=== PATIENT | female | born 1940 | race Caucasian/White ===

== ENCOUNTER 2016-11-19 16:52 | Inpatient (IN) | payer MEDICARE, OTHER ==
[~2016-11-19] VITALS: Ht 162.6 cm; Wt 58.6 kg
[2016-11-19] MEDS ORDERED: ASPIRIN 81 MG TABLET CHEW ONE (17:24)
[2016-11-19] MEDS ORDERED: ASPIRIN 81 MG TABLET CHEW PO ONE (17:30)
[2016-11-19 17:55] LABS: IS PT STATUS REG ER OR PRE ER? YES
[2016-11-19 17:58] LABS: BLOOD UREA NITROGEN 14 mg/dL (7-18)
[2016-11-19] MEDS ORDERED: ALPR0.254 PO (20:09)
[2016-11-19] MEDS ORDERED: CLOP75TA22 PO (20:09)
[2016-11-19] MEDS ORDERED: ROSU20TA PO (20:09)
[2016-11-19] MEDS ORDERED: ASPI-496 PO (20:09)
[2016-11-19] MEDS ORDERED: FURO20TA3 PO (20:09)
[2016-11-19] MEDS ORDERED: CARV-39 PO (20:09)
[2016-11-19] MEDS ORDERED: CEPH-375 PO (20:09)
[2016-11-19] MEDS ORDERED: ROPI0.5T2 PO (20:09)
[2016-11-19] MEDS ORDERED: LOSA100T6 PO (20:09)
[2016-11-19] MEDS ORDERED: LEVO75TA5 PO (20:09)
[2016-11-19] MEDS ORDERED: CARVEDILOL 25 MG TABLET PO ONE (21:30)
[2016-11-19 22:21] VITALS: BP 192/100
[2016-11-19 23:15] VITALS: BP 181/77
[2016-11-19] MEDS ORDERED: hydrALAzine 20 MG/ML, 1ML IV PRN (23:30)
[2016-11-20] MEDS ORDERED: POLYETHYLENE GLYCOL 17 GM PACKET PO PRN
[2016-11-20] MEDS ORDERED: morphine SULFATE 10 MG/ML, 1ML IVPush PRN
[2016-11-20] MEDS ORDERED: BISACODYL 10 MG SUPP PR PRN
[2016-11-20] MEDS ORDERED: ONDANSETRON 2MG/ML, 2ML IVPush PRN
[2016-11-20] MEDS ORDERED: ACETAMINOPHEN 325 MG TABLET PO PRN
[2016-11-20] MEDS ORDERED: NITROGLYCERIN 0.4 MG BOTTLE (25 TABS) SL PRN
[2016-11-20] MEDS: ATORVASTATIN 40 MG TABLET PO SCH ×2 (00:35→20:29)
[2016-11-20] MEDS: ROPINIROLE 0.5MG TABLET PO SCH ×2 (00:35→20:30)
[2016-11-20] MEDS: HEPARIN 5,000 UNITS/ML, 1ML SQ SCH ×3 (00:36→16:54)
[2016-11-20] MEDS: CARVEDILOL 25 MG TABLET PO SCH ×3 (00:38→20:30)
[2016-11-20 00:57] LABS: IS PT STATUS REG ER OR PRE ER? NO
[2016-11-20 01:19] VITALS: BP 126/65
[2016-11-20] MEDS: LEVOTHYROXINE 75 MCG TABLET PO SCH (05:40)
[2016-11-20 06:21] LABS: IS PT STATUS REG ER OR PRE ER? NO
[2016-11-20 07:54] VITALS: BP 143/75
[2016-11-20] MEDS: LOSARTAN 50MG TABLET PO SCH (08:03)
[2016-11-20] MEDS: CEPHALEXIN 250 MG CAPSULE PO SCH (08:03)
[2016-11-20] MEDS: ASPIRIN 81 MG TABLET EC PO SCH (08:03)
[2016-11-20] MEDS: FUROSEMIDE 40 MG TABLET PO SCH (08:03)
[2016-11-20] MEDS: CLOPIDOGREL 75 MG TABLET PO SCH (08:03)
[2016-11-20] MEDS: SODIUM CHLORIDE FLUSH 10ML SYR IVF SCH ×2 (08:10→20:30)
[2016-11-20] MEDS ORDERED: REGADENOSON 0.4 MG/5 ML SYRINGE ONE (08:15)
[2016-11-20 14:30] VITALS: BP 119/67
[2016-11-20 19:06] VITALS: BP 114/64
[2016-11-21] MEDS: HEPARIN 5,000 UNITS/ML, 1ML SQ SCH ×2 (01:44→07:40)
[2016-11-21 02:07] VITALS: BP 121/63
[2016-11-21 05:46] LABS: IS PT STATUS REG ER OR PRE ER? NO
[2016-11-21] MEDS: LEVOTHYROXINE 75 MCG TABLET PO SCH (06:10)
[2016-11-21 06:40] VITALS: BP 146/77
[2016-11-21] MEDS: CARVEDILOL 25 MG TABLET PO SCH (07:37)
[2016-11-21] MEDS: FUROSEMIDE 40 MG TABLET PO SCH (07:38)
[2016-11-21] MEDS: ASPIRIN 81 MG TABLET EC PO SCH (07:38)
[2016-11-21] MEDS: SODIUM CHLORIDE FLUSH 10ML SYR IVF SCH (07:38)
[2016-11-21] MEDS: CEPHALEXIN 250 MG CAPSULE PO SCH (07:38)
[2016-11-21] MEDS: LOSARTAN 50MG TABLET PO SCH (07:38)
[2016-11-21] MEDS: CLOPIDOGREL 75 MG TABLET PO SCH (07:38)
== END 2016-11-21 13:15 | disposition home or self-care (01) | DRG 305 ==
LOC: ED 21:17 → EDIP 21:18 → 5SO 22:18
PROVIDERS: ADMIT Internal Medicine; ATTEND Internal Medicine
DX: I10 Essential (primary) hypertension (principal); I49.5 Sick sinus syndrome; R32 Unspecified urinary incontinence; D35.01 Benign neoplasm of right adrenal gland; E03.9 Hypothyroidism, unspecified; E78.5 Hyperlipidemia, unspecified; G25.81 Restless legs syndrome; R01.1 Cardiac murmur, unspecified; M46.82 Other specified inflammatory spondylopathies, cervical region; K44.9 Diaphragmatic hernia without obstruction or gangrene; I48.0 Paroxysmal atrial fibrillation; I25.10 Atherosclerotic heart disease of native coronary artery without angina pectoris; I25.2 Old myocardial infarction; Z86.73 Personal history of transient ischemic attack (TIA), and cerebral infarction without residual deficits; Z95.0 Presence of cardiac pacemaker; Z95.1 Presence of aortocoronary bypass graft; Z90.710 Acquired absence of both cervix and uterus; Z82.49 Family history of ischemic heart disease and other diseases of the circulatory system
CPT/HCPCS: 36415; 71010; 71275; 78452; 80048; 81003; 82040; 84439; 84443; 84484; 85025; 85610; 93005; 93017; 96374; J1644; J2785; A9502; C9898; J0360

== ENCOUNTER → 2017-01-22 | Outpatient (CLI) | payer MEDICARE, OTHER ==
[~2017-01-22] MED LIST: ALPR0.254 PO; ASPI-496 PO; CARV-39 PO; CEPH-375 PO; CLOP75TA52 PO; FURO20TA3 PO; LEVO75TA5 PO; LOSA100T6 PO; OMNIPAQUE 350 MG/ML, 100ML BOTTLE ONE; ROPI0.5T2 PO; ROSU20TA PO
== END | disposition home or self-care (01) ==
LOC: CFH 13:53
PROVIDERS: ATTEND Urology
DX: K44.9 Diaphragmatic hernia without obstruction or gangrene (principal); Z87.440 Personal history of urinary (tract) infections
CPT/HCPCS: 74177; 82565; Q9967

== ENCOUNTER → 2017-11-18 | Outpatient (CLI) | payer MEDICARE, OTHER ==
[~2017-11-18] MED LIST changes: +CALC-451 PO; +CIPR250T27 PO; +FOLI0.8T2 PO; +OMEP-110 PO; -OMNIPAQUE 350 MG/ML, 100ML BOTTLE ONE
== END | disposition home or self-care (01) ==
LOC: CFH 09:00
PROVIDERS: ATTEND Internal Medicine Cardiovascular Disease
DX: I08.3 Combined rheumatic disorders of mitral, aortic and tricuspid valves (principal); I11.9 Hypertensive heart disease without heart failure; I42.9 Cardiomyopathy, unspecified; I00 Rheumatic fever without heart involvement; E78.5 Hyperlipidemia, unspecified; R53.83 Other fatigue
CPT/HCPCS: 93306

== ENCOUNTER 2018-03-19 11:27 | Emergency (ER) | payer MEDICARE, OTHER ==
[~2018-03-19] VITALS: Ht 162.6 cm; Wt 63.4 kg
[~2018-03-19 11:27] MED LIST changes: -LOSA100T6 PO; +LOSA100T7 PO
[2018-03-19 11:28] VITALS: BP 174/71
== END 2018-03-19 12:46 | disposition home or self-care (01) ==
LOC: ED 12:17
DX: T16.1XXA Foreign body in right ear, initial encounter (principal); M25.552 Pain in left hip; M19.90 Unspecified osteoarthritis, unspecified site; I10 Essential (primary) hypertension; I25.2 Old myocardial infarction; Z95.0 Presence of cardiac pacemaker; Z90.49 Acquired absence of other specified parts of digestive tract; Z86.73 Personal history of transient ischemic attack (TIA), and cerebral infarction without residual deficits; X58.XXXA Exposure to other specified factors, initial encounter; Y93.89 Activity, other specified; Y99.8 Other external cause status; Y92.89 Other specified places as the place of occurrence of the external cause
CPT/HCPCS: 69200

== ENCOUNTER → 2018-11-21 | Outpatient (CLI) | payer MEDICARE, OTHER ==
[~2018-11-21] MED LIST changes: +LOSA100T14 PO; -LOSA100T7 PO; -ROSU20TA PO; +ROSU20TA2 PO
== END | disposition home or self-care (01) ==
LOC: CFH 09:51
PROVIDERS: ATTEND Nurse Practitioner Family
DX: M51.36 Other intervertebral disc degeneration, lumbar region (principal); M48.061 Spinal stenosis, lumbar region without neurogenic claudication; M41.86 Other forms of scoliosis, lumbar region; M46.06 Spinal enthesopathy, lumbar region; M16.0 Bilateral primary osteoarthritis of hip; M76.892 Other specified enthesopathies of left lower limb, excluding foot; M76.891 Other specified enthesopathies of right lower limb, excluding foot
CPT/HCPCS: 72110; 73523

== ENCOUNTER → 2019-08-09 | Outpatient (CLI) | payer MEDICARE, OTHER ==
[~2019-08-09] MED LIST changes: +REGADENOSON 0.4 MG/5 ML SYRINGE ONE; -ROPI0.5T2 PO; +ROPI0.5T4 PO
== END | disposition home or self-care (01) ==
LOC: CFH 07:23
PROVIDERS: ATTEND Internal Medicine Cardiovascular Disease
DX: I08.8 Other rheumatic multiple valve diseases (principal); I11.9 Hypertensive heart disease without heart failure; I63.9 Cerebral infarction, unspecified; Z95.1 Presence of aortocoronary bypass graft
CPT/HCPCS: 78452; 93017; 93306; A9502; J2785

== ENCOUNTER 2019-10-05 07:40 | Day surgery (SDC) | payer MEDICARE, OTHER ==
[~2019-10-05] VITALS: Ht 162.6 cm; Wt 62.7 kg
[~2019-10-05 07:40] MED LIST changes: -REGADENOSON 0.4 MG/5 ML SYRINGE ONE
[2019-10-05] MEDS ORDERED: SODIUM CHLORIDE 0.9% 1,000 ML IV SCH (08:08)
[2019-10-05 08:17] VITALS: BP 151/72
[2019-10-05] MEDS ORDERED: CA C1TAB62 PO (08:27)
[2019-10-05] MEDS ORDERED: VITA100C8 PO (08:27)
[2019-10-05] MEDS ORDERED: AMLO-150 PO (08:27)
[2019-10-05] MEDS ORDERED: CHOL10003 PO (08:27)
[2019-10-05 08:37] LABS: BASOPHILS # (AUTO) 0.02 x10^3/uL (0-0.1); BASOPHILS % (AUTO) 0 % (0-1); EOSINOPHILS # (AUTO) 0.09 x10^3/uL (0-0.4); EOSINOPHILS % (AUTO) 2 % (1-7); LYMPHOCYTES # (AUTO) 1.77 x10^3/uL (1-3.4); LYMPHOCYTES % (AUTO) 35 % (22-44); MD NO; MEAN CORPUSCULAR HEMOGLOBIN 31.1 pg (27.0-34.8); MEAN CORPUSCULAR VOLUME 94.2 fL (80-100); MEAN PLATELET VOLUME 8.7 fL (7.4-10.4); MONOCYTES # (AUTO) 0.43 x10^3/uL (0.2-0.8); MONOCYTES % (AUTO) 9 % (2-9); NEUTROPHILS % (AUTO) 54 % (42-75); PLATELET COUNT 190 x10^3/uL (130-400); RED BLOOD COUNT 4.11 x10^6/uL (3.82-5.3)
[2019-10-05 08:47] LABS: ANION GAP 8 mmol/L (5-15); CALCIUM 9.3 mg/dL (8.5-10.1); CHLORIDE 107 mmol/L (98-107); CREATININE 1.07 mg/dL (0.55-1.02)
[2019-10-05] MEDS ORDERED: MIDAZOLAM 1 MG/ML, 5ML ONE (09:07)
[2019-10-05] MEDS ORDERED: FENTANYL PF 100 MCG/2ML ONE (09:07)
[2019-10-05] MEDS ORDERED: LIDOCAINE 2%, 20ML ONE (09:08)
[2019-10-05] MEDS ORDERED: BIVALIRUDIN 250 MG ONE (09:08)
== END 2019-10-05 13:15 | disposition home or self-care (01) ==
LOC: CACL 07:40
PROVIDERS: ATTEND Internal Medicine Cardiovascular Disease
DX: R94.39 Abnormal result of other cardiovascular function study (principal); I25.5 Ischemic cardiomyopathy; I25.119 Atherosclerotic heart disease of native coronary artery with unspecified angina pectoris; I25.709 Atherosclerosis of coronary artery bypass graft(s), unspecified, with unspecified angina pectoris; I11.0 Hypertensive heart disease with heart failure; I50.9 Heart failure, unspecified; K21.9 Gastro-esophageal reflux disease without esophagitis; E78.5 Hyperlipidemia, unspecified; G47.30 Sleep apnea, unspecified; E66.3 Overweight; Z68.23 Body mass index [BMI] 23.0-23.9, adult; Z79.02 Long term (current) use of antithrombotics/antiplatelets; Z79.82 Long term (current) use of aspirin; Z79.890 Hormone replacement therapy; Z79.899 Other long term (current) drug therapy; Z87.891 Personal history of nicotine dependence; Z95.810 Presence of automatic (implantable) cardiac defibrillator; Z82.49 Family history of ischemic heart disease and other diseases of the circulatory system
CPT/HCPCS: 36415; 80048; 85025; 93459; 99156; C1760; C1769; C1894; J2250; J3010; Q9967; 93455; J0583

== ENCOUNTER 2020-01-28 09:52 | Emergency (ER) | payer MEDICARE, OTHER ==
[~2020-01-28] VITALS: Ht 162.6 cm; Wt 62.7 kg
[~2020-01-28 09:52] MED LIST changes: +AMLO-150 PO; +CA C1TAB62 PO; +CHOL10003 PO; +VITA100C8 PO
[2020-01-28] MEDS ORDERED: MAALOX/HYOSCYAMINE/LIDOCAINE 45 ML BTL PO ONE (10:30)
[2020-01-28] MEDS ORDERED: SODIUM CHLORIDE FLUSH 10ML SYR IVF ONE (10:30)
[2020-01-28] MEDS ORDERED: ASPIRIN 81 MG TABLET CHEW PO ONE (10:30)
--- NOTE | 2020-01-28 10:35 | NUR ---
MEDIC IN TO START IV.
[2020-01-28 10:52] LABS: BASOPHILS # (AUTO) 0.02 x10^3/uL (0-0.1); BASOPHILS % (AUTO) 0 % (0-1); EOSINOPHILS # (AUTO) 0.08 x10^3/uL (0-0.4); EOSINOPHILS % (AUTO) 1 % (1-7); LYMPHOCYTES # (AUTO) 1.95 x10^3/uL (1-3.4); LYMPHOCYTES % (AUTO) 36 % (22-44); MD NO; MEAN CORPUSCULAR HEMOGLOBIN 30.6 pg (27.0-34.8); MEAN CORPUSCULAR HGB CONC 32.1 g/dL (32.4-35.8); MEAN CORPUSCULAR VOLUME 95.2 fL (80-100); MEAN PLATELET VOLUME 8.9 fL (7.4-10.4); MONOCYTES # (AUTO) 0.46 x10^3/uL (0.2-0.8); MONOCYTES % (AUTO) 8 % (2-9); NEUTROPHILS # (AUTO) 2.89 x10^3/uL (1.8-6.8); NEUTROPHILS % (AUTO) 54 % (42-75); PLATELET COUNT 187 x10^3/uL (130-400); RED BLOOD COUNT 4.32 x10^6/uL (3.82-5.3); RED CELL DISTRIBUTION WIDTH 12.7 % (9.6-15.2)
[2020-01-28] MEDS ORDERED: ASPIRIN 81 MG TABLET CHEW ONE (10:52)
[2020-01-28] MEDS ORDERED: MAALOX/HYOSCYAMINE/LIDOCAINE 45 ML BTL ONE (10:53)
[2020-01-28 11:05] LABS: ALANINE AMINOTRANSFERASE 23 U/L (12-78); ALBUMIN 4.2 g/dL (3.4-5.0); ANION GAP 6 mmol/L (5-15); CALCIUM 9.2 mg/dL (8.5-10.1); CHLORIDE 108 mmol/L (98-107); CREATININE 0.97 mg/dL (0.55-1.02)
[2020-01-28 11:09] LABS: ALKALINE PHOSPHATASE 83 U/L (45-117); BILIRUBIN,TOTAL 0.4 mg/dL (0.2-1.0); TOTAL PROTEIN 7.7 g/dL (6.4-8.2); TROPONIN I < 0.015 ng/mL (0.000-0.045)
[2020-01-28 11:46] VITALS: BP 146/66
--- NOTE | 2020-01-28 11:47 | NUR ---
PT STATES PAIN DOWN FROM 5/10 TO 4/10, DESCRIBES PAIN A "HEAVY" TO STERNUM AND CONTINUES TO RADIATEACROSS CHEST AND TO BACK. PT WITHOUT SOB, NAUSEA OR OTHER SX AT THIS TIME. VSS/UPDATED IN COMPUTER. PT FOR RECHECK.
== END 2020-01-28 12:51 | disposition home or self-care (01) ==
LOC: ED 11:27
DX: R07.89 Other chest pain (principal); K44.9 Diaphragmatic hernia without obstruction or gangrene; R94.31 Abnormal electrocardiogram [ECG] [EKG]; I10 Essential (primary) hypertension; I25.2 Old myocardial infarction; Z95.0 Presence of cardiac pacemaker; Z86.73 Personal history of transient ischemic attack (TIA), and cerebral infarction without residual deficits; Z90.89 Acquired absence of other organs
CPT/HCPCS: 36415; 71045; 80053; 83690; 84484; 85025; 93005; 99285

== ENCOUNTER → 2020-02-21 | Outpatient (CLI) | payer MEDICARE, OTHER | END | disposition home or self-care (01) | LOC: RAD 08:23 | PROVIDERS: ATTEND Family Medicine | DX: K44.9 Diaphragmatic hernia without obstruction or gangrene (principal); R13.19 Other dysphagia | CPT/HCPCS: 74220 ==

== ENCOUNTER 2020-03-07 11:57 | Emergency (ER) | payer MEDICARE, OTHER ==
[~2020-03-07] VITALS: Ht 162.6 cm; Wt 63.0 kg
[2020-03-07] MEDS ORDERED: KETOROLAC 30 MG/1 ML ONE (12:21)
--- NOTE | 2020-03-07 12:25 | NUR ---
Note endy in ED - 03/07/20 at 1225 by ROBBY break rn: patient roomed to room 14 from [facility]. patient aox4 vss at this time. waiting for CT scan.
[2020-03-07] MEDS ORDERED: PLEASE ENTER HEIGHT AND WEIGHT MC SCH (12:30)
[2020-03-07] MEDS ORDERED: KETOROLAC 30 MG/1 ML IM ONE (12:30)
--- NOTE | 2020-03-07 13:10 | NUR ---
Pt supine in bed. Reports improved pain following medication administration. Pt provided warm blankets per request. No additional needs at this time. NAD, VSS. will continue to monitor.
--- NOTE | 2020-03-07 14:00 | NUR ---
Pt supine in bed. Reports improved pain following medication administration. No additional needs at this time. NAD, VSS. will continue to monitor.
[2020-03-07 14:44] VITALS: BP 159/60
--- NOTE | 2020-03-07 14:54 | NUR ---
Patient given discharge instructions and they have confirmed that they understand the instructions. Patient wheeled to discharge, patient's daughter will be here to pick patient up for safe discharge/transportation
== END 2020-03-07 14:56 | disposition home or self-care (01) ==
LOC: ED 13:14
DX: S39.012A Strain of muscle, fascia and tendon of lower back, initial encounter (principal); I10 Essential (primary) hypertension; I25.2 Old myocardial infarction; Z90.89 Acquired absence of other organs; Z95.0 Presence of cardiac pacemaker; Z86.73 Personal history of transient ischemic attack (TIA), and cerebral infarction without residual deficits; X58.XXXA Exposure to other specified factors, initial encounter; Y93.89 Activity, other specified; Y92.89 Other specified places as the place of occurrence of the external cause; Y99.8 Other external cause status
CPT/HCPCS: 72110; 96372; 99283; J1885

== ENCOUNTER 2021-01-08 14:41 | Outpatient (CLI) | payer MEDICARE, OTHER ==
[~2021-01-08 14:41] MED LIST changes: -FOLI0.8T2 PO; +FOLI0.8T5 PO; +VITA100C10 PO; -VITA100C8 PO
== END 2021-01-08 23:59 | disposition home or self-care (01) ==
LOC: CFH 14:41
PROVIDERS: ATTEND Student in an Organized Health Care Education/Training Program
DX: I08.3 Combined rheumatic disorders of mitral, aortic and tricuspid valves (principal); I42.8 Other cardiomyopathies
CPT/HCPCS: 93306; 93356